=== PATIENT | male | born 1995 | race African-American/Black ===

== ENCOUNTER 2022-02-15 19:54 | Emergency (ER) | payer SELFPAY ==
[~2022-02-15] VITALS: Ht 185.4 cm; Wt 84.1 kg
[2022-02-15 20:05] VITALS: TEMP 98.3
[2022-02-15 20:18] LABS: COLLECTION METHOD CLEAN CATCH
[2022-02-15 20:22] LABS: URINE APPEARANCE Cloudy (CLEAR/HAZY); URINE COLOR Amber (YELLOW)
[2022-02-15 20:23] LABS: URINE GLUCOSE Negative (NEGATIVE); URINE KETONE TRACE (NEGATIVE); URINE PROTEIN(semi-quant) 1+ (NEGATIVE)
[2022-02-15 20:24] LABS: URINE BLOOD 1+ (NEGATIVE); URINE NITRATE Negative (NEGATIVE); URINE UROBILINOGEN >=8.0 E.U/dL (0.2-1.0)
[2022-02-15 20:25] LABS: STREP SCREEN NEGATIVE
[2022-02-15 20:35] LABS: MUCOUS Present (NOT PRESENT); SQUAMOUS EPITHELIAL 0-2 /hpf (0-10); URINE BACTERIA None Seen /hpf (NONE SEEN)
[2022-02-15] MEDS ORDERED: AMOXICILLIN875 MG PO (21:39)
[2022-02-15 22:19] VITALS: BP 108/83; PULSE 91
== END 2022-02-15 22:19 | disposition home or self-care (01) ==
LOC: COL.ER 19:54
PROVIDERS: Emergency Medicine
DX: J02.9 Acute pharyngitis, unspecified (principal); R31.9 Hematuria, unspecified; Z28.310 Unvaccinated for COVID-19
CPT/HCPCS: J8540